=== PATIENT | male | born 1970 | race African-American/Black ===

== ENCOUNTER 2023-10-19 14:11 | Emergency (ER) | payer BC ==
[2023-10-19 14:16] VITALS: BP 151/91; PULSE 97; RESP 18; TEMP 98; BMI 20.2
== END 2023-10-19 15:00 | disposition home or self-care (01) ==
LOC: JERFT 14:11
DX: R76.11 Nonspecific reaction to tuberculin skin test without active tuberculosis (principal)
CPT/HCPCS: 71046-TC-FY; 99283-25

== ENCOUNTER 2025-02-19 20:48 | Emergency (ER) | payer BC ==
[2025-02-19 20:54] VITALS: BP 137/91; PULSE 81; RESP 18; TEMP 98.3; BMI 19.8
== END 2025-02-19 21:37 | disposition home or self-care (01) ==
LOC: JERFT 20:48 → JER 20:48 → JERFT 21:37
DX: M54.41 Lumbago with sciatica, right side (principal)
CPT/HCPCS: 99283-25